=== PATIENT | male | born 1980 | race Two or more races ===

== ENCOUNTER 2024-05-21 13:26 | Emergency (ER) | payer SELFPAY ==
[~2024-05-21] VITALS: Ht 188 cm; Wt 82.5 kg
--- NOTE | 2024-05-21 14:29 | DVH ---
EXAM: CT HEAD WITHOUT CONTRAST HISTORY: INJURY COMPARISON: None TECHNIQUE: Axial images of the head were obtained and reformatted in coronal and sagittal planes. All CT scans at this medical facility are performed using dose modulation techniques as appropriate t o a performed exam including the following: Automated exposure control was utilized; adjustment of th e MA and/or KV according to patient size; and use of iterative reconstruction technique. CT Dose: CTDI volume is 57.18 mGy. Dose-length product is 1012.13 mGy*cm FINDINGS: There is no evidence of acute intracranial hemorrhage, mass, mass effect midline shift. There is no h ydrocephalus or extra-axial fluid collection. Onofre-white matter differentiation is maintained. The calvarium is intact. There are postsurgical changes along the left orbital floor. There is comple te opacification of the left frontal and left ethmoid sinuses. There is moderate mucosal thickening in the left sphenoid sinus. The mastoid air cells are clear. IMPRESSION: 1. No acute intracranial process. 2. Postsurgical changes along the left orbital floor. HS:Y
--- NOTE | 2024-05-21 14:45 | ED.PDOC ---
HPI (NEURO) HPI Comments 44y M who presents to the ED for chief complaint of head injury. Pt states he had mechanical fall over his dog 3 days prior. Pt states he did have loss of consciousness and since been having posterior headache with associated pain over his L eye. Pt states he also had vomiting episode. pt in the ED describes his headache as constant, throbbing and pressure like in nature with no associated exacerbating or relieving factors. p Pt is alert and oriented x 4 and able to answer all questions at this time. t otherwise denies any other symptoms at this time. Chief Complaint: Head Injury Time Seen by MD: 14:40 Primary Care Provider: HEADACHE Reviewed Notes: Nurses Notes, Medications Information Source: Patient Mode of Arrival: Ambulatory Brought in by: self Constitutional: denies: chills, diaphoresis, fatigue, fever, malaise, sweats, weakness, others EENTM: denies: blurred vision, double vision, ear bleeding, ear discharge, ear drainage, ear pain, ear ringing, eye pain, eye redness, hearing loss, mouth pain, mouth swelling, nasal discharge, nose bleeding, nose congestion, nose pain, photophobia, tearing, throat pain, throat swelling, voice changes, others Respiratory: denies: cough, hemoptysis, orthopnea, SOB at rest, shortness of breath, SOB with excertion, stridor, wheezing, others Cardiovascular: denies: chest pain, dizzy spells, diaphoresis, Dyspnea on exertion, edema, irregular heart beat, left arm pain, lightheadedness, palpitations, PND, syncope, others Gastrointestinal: reports: nausea, vomiting; denies: abdomen distended, abdo duane pain, blood streaked bowels, constipated, diarrhea, dysphagia, difficulty swallowing, hematemesis, melena, poor appetite, poor fluid intake, rectal bleeding, rectal pain, others Genitourinary: denies: burning, dysuria, flank pain, frequency, hematuria, incontinence, penile discharge, penile sore, pain, testicle pain, testicle swelling, urgency, others Neurological: reports: headache; denies: dizziness, fainting, left sided numbness, left sided weakness, numbness, paresthesia, pre-existing deficit, right sided numbness, right sided weakness, seizure, speech problems, tingling, tremors, weakness, others Musculoskeletal: denies: back pain, gout, joint pain, joint swelling, muscle pain, muscle stiffness, neck pain, others Integumetry: denies: bruises, change in color, change in hair/nails, dryness, laceration, lesions, lumps, rash, wounds, others Allergic/Immunocompromised: denies: Difficulty Healing, Frequent Infections, Hives, Itching, others Hematologic/Lymphatic: denies: anemia, blood clots, easy bleeding, easy bruising, swollen glands, others Endocrine: denies: excessive hunger, excessive sweating, excessive thirst, excessive urination, flushing, intolerance to cold, intolerance to heat, unexplained weight gain, unexplained weight loss, others Psychiatric: denies: anxiety, bipolar disorder, depression, hopeless, panic disorder, schizophrenia, sleepless, suicidal, others All Other Systems: Reviewed and Negative Physical Exam General Appearance: No Apparent Distress, Normal HEENT: Normal ENT Inspection, Pharynx Normal, TMs Normal Neck: Full Range of Motion, Non-Tender, Normal, Normal Inspection Respiratory: Chest Non-Tender, Lungs Clear, No Accessory Muscle Use, No Respiratory Distress, Normal Breath Sounds Cardiovascular: No Edema, No JVD, No Murmur, No Gallop, Normal Peripheral Pulses, Regular Rate/Rhythm Breast Exam: Deferred Gastrointestinal: No Organomegaly, Non Tender, No Pulsatile Mass, Normal Bowel Sounds, Soft Genitalia: Deferred Pelvic: Deferred Rectal: Deferred Extremities: No calf tenderness, Normal capillary refill, Normal inspection, Normal range of motion, Non-tender, No pedal edema Musculoskeletal : Apperance: Normal Neurologic: Alert, Other (normal cephalic changes, L orbital pain ) Cerebellar Function: Normal Reflexes: Normal Skin: Dry, Normal Color, Warm Lymphatic: No Adenopathy Was a procedure done? Was a procedure done?: No Differential Diagnosis (SZ) General Weakness: Anemia, Dehydration, Dysrhythmia, Electrolyte imbalance, Hypotension, Vertigo: central, Vertigo: peripheral, Vestibular neuronitis Headache: Migraine, Closed Head Injury, Epidural Hemorrhage, Intracerebral Hemorrhage, Subarachnoid Hemorrhage, Subdural Hemorrhage, Post-Traumatic, Sinusitis, Trigeminal Neuralgia, Other (skull fracture, intracranial bleed, contusion) X-Ray, Labs, Meds, VS Vital Signs Date Time Temp Pulse Resp B/P (MAP) Pulse Ox O2 Delivery O2 Flow Rate FiO2 05/21/24 13:35 98.2 69 18 147/100 (531) 98 [facility] [id number] [facility] [address] Ph: [phone] DIAGNOSTIC IMAGING Diagnostic Imaging Report : [id number] Signed PATIENT: CHALO ROBLERO ACCT: [id number] UNIT: [id number] : 1980 LOC: ER ROOM / BED: / AGE / SEX: 44 / M ADM STATUS: REG ER SERVICE 1343 ORDERING PHYSICIAN: LILLIAN CHAUDHARI MD PROCEDURE(s): HWOCT - HEAD WITHOUT CONTRAST REASON: INJURY ORDER NUMBER(s): [id number], ACCESSION NUMBER(s): [id number] EXAM: CT HEAD WITHOUT CONTRAST HISTORY: INJURY COMPARISON: None TECHNIQUE: Axial images of the head were obtained and reformatted in coronal and sagittal planes. All CT scans at this medical facility are performed using dose modulation techniques as appropriate to a performed exam including the following: Automated exposure control was utilized; adjustment of the MA and/or KV according to patient size; and use of iterative reconstruction technique. CT Dose: CTDI volume is 57.18 mGy. Dose-length product is 1012.13 mGy*cm FINDINGS: There is no evidence of acute intracranial hemorrhage, mass, mass effect midline shift. There is no hydrocephalus or extra-axial fluid collection. Onofre-white matter differentiation is maintained. The calvarium is intact. There are postsurgical changes along the left orbital floor. There is complete opacification of the left frontal and left ethmoid sinuses. There is moderate mucosal thickening in the left sphenoid sinus. The mastoid air cells are clear. IMPRESSION: 1. No acute intracranial process. 2. Postsurgical changes along the left orbital floor. HS:Y ATED BY: CARRILLO TRAVIS MD DICTATED DATE/TIME: 05/21/241426 SIGNED BY: CARRILLO TRAVIS MD SIGNED DATE/TIME: 05/21/241426 CC: Time of 1ST Reevaluation: 15:10 Reevaluation 1ST: Unchanged Time of 2ND Reevaluation: 15:15 Reevaluation 2ND: Improved Patient Education/Counseling: Diagnosis, Treatment, Prognosis, Need For Follow Up Family Education/Counseling: No Family Present Additional Information - I reviewed the following notes from patient's past medical encounters: - The following tests were ordered, and results were reviewed by me: (Labs, X- Ray, EKG): CT head without contrast - Additional information was gathered from interviewing the following independent Historian: (Family, Other Providers, EMT): none - I reviewed and agreed with the following test results read by other provider: (X-ray, CT, US): radiologist - I discussed treatments and results with medical personnel and: (consultants, family): none pt does not have any ct findings of an acute injury. he is stable for discharge Departure 1 Departure Time of Disposition: 15:16 Impression: Primary Impression: Post-concussion headache Disposition: HOME / SELF CARE / HOMELESS Condition: Good e-Prescriptions Ibuprofen Micronized (MOTRIN TABLET) 600 Mg Tb 600 MG PO TID PRN, #40 TAB *Black box warning-NSAIDS can increase risk of ME & hypertension, GI irritation, ulceration, bleed, perferation. Do not use post cardiac surgery. Use short duration/lowest effective dose. Prov: LILLIAN CHAUDHARI MD 05/21/24 Discharged With: Self Critical Care Note Critical Care Time?: Yes (45 min-critical care time only) Critical care comment: due to concerns for patient's condition deterioration, the care required my hig hest attention and readiness to intervene. i spoke to the family, patient, reviewed any records, ordered the appropriate tests and treatments, reviewed the results, response and communicated with medical personnel, formulated a plan of care. critical care time does not include any procedures Stability Stability form required: No Heart Score Heart Score: Heart Score Response (Comments) Value History N/A 0 EKG N/A 0 Age N/A 0 Risk Factors N/A 0 Troponin N/A 0 Total 0 I personally scribed for LILLIAN CHAUDHARI MD ([email or web address]) on 05/21/24 at 14:45. Electronically submitted by Laura PURCELL). LILLIAN CHAUDHARI MD May 21, 2024 14:45
[2024-05-21] MEDS ORDERED: IBU600T PO (15:17)
[2024-05-21 15:58] VITALS: BP 148/99; PULSE 85; RESP 17; TEMP 98.4; O2SAT 100
== END 2024-05-21 16:02 | disposition home or self-care (01) ==
LOC: ER 13:26
DX: G44.309 Post-traumatic headache, unspecified, not intractable (principal)
CPT/HCPCS: 70450

== ENCOUNTER 2024-08-09 08:50 | Emergency (ER) | payer SELFPAY ==
[~2024-08-09] VITALS: Ht 182.9 cm; Wt 100.0 kg
[2024-08-09 08:50] VITALS: BP 0/0; PULSE 0; RESP 0; TEMP 95.5; O2SAT 0
[~2024-08-09 08:50] MED LIST: IBU600T PO
--- NOTE | 2024-08-09 09:30 | RESUS ---
CODE BLUE ASSESSSMENT History of Events History of Events: PT ARRIVES TO ER WITH CPR IN PROGRESS VIA AUTOPULSE. PER EMS, UNKNOWN DOWNTIME PRIOR TO THEIR ARRIVAL. PT IS A ADEEL TREJO AT THE TIME OF ARRIVAL. UNKNOWN PMH. EMS GAVE A TOTAL OF 8 EPINEPHRINE, 5 SHOCKS, AND 4 MG OF NARCAN. Initial Information Date: Aug 09, 2024 Time: 08:49 Location of Arrest: ER Arrest Witnessed: No CPR started by whom: EMS Pre-Hospital Care: ACLS Type of arrest: Adult, Unwitnessed Spontaneous Respirations: No Pulse Present: No Monitoring: ECG, Pulse Oximetry, Telemetry Crash Cart Opened and Supplies: Yes Airway Ventilation Breathing at Onset: Assisted O2 Sat by Pulse Oximetry: 0 Oxygen Delivery Method: Ambu-Bag Artificial Ventilation: Bag/Endo tube Intubation Time: 08:54 Intubation Size: 7.0 cuffed Intubated by: LIZANDRO LANGE Intubation Attempts: 1 Intubated orally: Yes Tube secured at: 22 Circulation Circulation #1: Time: 08:50 Pulse Rate (adult): 0 Blood Pressure Systolic: 0 Blood Pressure Diastolic: 0 Circulation Comment: PT IN [place]YSTOLE Circulation #2: Time: 08:52 Pulse Rate (adult): 0 Blood Pressure Systolic: 0 Blood Pressure Diastolic: 0 Circulation Comment: PT IN [place] Circulation #3: Time: 08:54 Pulse Rate (adult): 0 Blood Pressure Systolic: 0 Blood Pressure Diastolic: 0 Temperature (Fahrenheit): 95.5 Circulation Comment: PT IN PEA Circulation #4: Time: 08:56 Pulse Rate (adult): 0 Blood Pressure Systolic: 0 Blood Pressure Diastolic: 0 Circulation Comment: PT IN [place] Procedure - Intraosseous Site of Intraosseous: Tibia eulogio-medial Intraosseous inserted by: EMS Medications & Response Medications and Responses #1: Medication Time: 08:50 ADULT Medications Given ADULT: Epinephrine 1 mg Route of Administration: IO Heart Rate: 0 EKG Rhythm: Asystole Blood Pressure Systolic: 0 Blood Pressure Diastolic: 0 Respiratory Rate: 0 O2 Sat by Pulse Oximetry: 0 EKG Rhythm: Asystole Medications and Responses #2: Medication Time: 08:51 ADULT Medications Given ADULT: Sodium Bacarbinate 50 meq Route of Administration: IO Heart Rate: 0 EKG Rhythm: Asystole Blood Pressure Systolic: 0 Blood Pressure Diastolic: 0 Respiratory Rate: 0 O2 Sat by Pulse Oximetry: 0 EKG Rhythm: Asystole Medications and Responses #3: Medication Time: 08:51 ADULT Medications Given ADULT: Narcan 1 mg Route of Administration: IO EKG Rhythm: Asystole Blood Pressure Systolic: 0 Blood Pressure Diastolic: 0 Respiratory Rate: 0 O2 Sat by Pulse Oximetry: 0 EKG Rhythm: Asystole Medications and Responses #4: Medication Time: 08:51 ADULT Medications Given ADULT: Narcan 1 mg Route of Administration: IO EKG Rhythm: Asystole Blood Pressure Systolic: 0 Blood Pressure Diastolic: 0 Respiratory Rate: 0 O2 Sat by Pulse Oximetry: 0 EKG Rhythm: Asystole Medications and Responses #5: Medication Time: 08:51 ADULT Medications Given ADULT: Narcan 1 mg Route of Administration: IO EKG Rhythm: Asystole Blood Pressure Systolic: 0 Blood Pressure Diastolic: 0 Respiratory Rate: 0 O2 Sat by Pulse Oximetry: 0 EKG Rhythm: Asystole Medications and Responses #6: Medication Time: 08:54 ADULT Medications Given ADULT: Epinephrine 1 mg Route of Administration: IO EKG Rhythm: PEA Blood Pressure Systolic: 0 Blood Pressure Diastolic: 0 Respiratory Rate: 0 O2 Sat by Pulse Oximetry: 0 EKG Rhythm: Asystole Medications and Responses #7: Medication Time: 08:54 ADULT Medications Given ADULT: Amiodarone 300 mg Route of Administration: IO EKG Rhythm: PEA EKG Rhythm: Asystole Nurses Notes Buzz Coma Scale Eye Opening: None (1) [place] Coma Scale Verbal: None (1) [place] Coma Scale Motor: None (1) Glascow Total: 3 Pupil Reaction: Non Reactive Bedside Blood Glucose: 178 Time Code Ended Time Code Ended: 08:56 Post Arrest Status: Outcome of code: Unsuccessful Patient pronounced by: DR ARMSTRONG Time patient pronounced: 08:56 Code Team Present: DR NATHANIEL BONE RT JULIA LEE Aug 09, 2024 09:30
--- NOTE | 2024-08-09 09:32 | ED.PDOC ---
CPR-HPI HPI Comments 40M is BIBA for the c/c of CPR x0759, today. Per EMS, pt is reported to be down 15 min prior to call time. EMS state on receiving the call [phone] michael arriving at x0757. On scene pt was V-Fib and was given 4mg of Narcan. En rout to the ER, the pt was Asystole and EMS gave the epinephrine x8, shocked x5 and I/O to the Left Tibial. Arrival to ED x0849 and CPR started at x0849 and stopped due from being x0856. Unable to get a PMHx, SHx of pt due from CPR as well as EMS stating the the pt is a "Gigi Rivera". Chief Complaint: CPR Time Seen by MD: 08:49 Primary Care Provider: IVAN Reviewed Notes: Interactive Multimedia Designer Notes Allergies: Coded Allergies: Erythromycin (Verified Allergy, Unknown, 05/21/24) UNOBTAINABLE (Unverified , 08/09/24) Home Meds Active Scripts Ibuprofen Micronized (MOTRIN TABLET) 600 Mg Tb, 600 MG PO TID PRN, #40 TAB *Black box warning-NSAIDS can increase risk of [place] & hypertension, GI irritation, ulceration, bleed, perferation. Do not use post cardiac surgery. Use short duration/lowest effective dose. Prov:LILLIAN CHAUDHARI MD 05/21/24 Information Source: Emergency Med Personnel Mode of Arrival: EMS Timing: Minutes Duration: Down time prior EMS: (25 minutes), Total time prior hopital: (77 Minutes) Onset: Unknown Available Hx: Unknown Inital rhythm: V-fib, Asystole Treatment: CPR Response: No response Associated signs and symptoms: Unknown Past Medical History PAST MEDICAL HISTORY: Unobtainable Surgical History: Unobtainable Family History Family History: Unobtainable Social History Smoker: Unobtainable Alcohol: Unobtainable Drugs: Unobtainable Lives In: Unobtainable Unable to Obtain due to: Medical Urgency Physical Exam General Appearance: Severe Distress HEENT: Other (Pupils fixed dilated) Neck: NOT DONE Respiratory: Respiratory Distress, Other (Intubated) Cardiovascular: Other (No pulse) Breast Exam: Deferred Gastrointestinal: Soft Genitalia: Deferred Pelvic: Deferred Rectal: Deferred Extremities: No pedal edema Neurologic: Other (Unconscious) Cerebellar Function: NOT DONE Reflexes: NOT DONE Skin: Other (Mottled) Peripheral Pulses: 0 Radial (R), 0 Radial (L) Lymphatic: NOT DONE Was a procedure done? Was a procedure done?: No Differential Dx CPR Differential Diagnosis: Cardiopulmonary arrest, Electrolyte disorder X-Ray, Labs, Meds, VS Vital Signs Date Time Temp Pulse Resp B/P (MAP) Pulse Ox O2 Delivery O2 Flow Rate FiO2 08/09/24 09:30 Ambu-Bag 0 0 08/09/24 08:50 0 0 0 Room Air* 0 21 08/09/24 08:50 95.5 0 0 0/0 (0) 0 95.5 Patient unconscious Mottled ACLS drugs use prior to coming to the ER. Continuous CPR. Continued epinephrine bicarbonate Narcan amiodarone. Downtime is more than an hour. Spoke with the team. Only family member is outside the state. Unable to revive the patient. Pronounce. Family informed. Time of 1ST Reevaluation: 09:19 Reevaluation 1ST: Unchanged Patient Education/Counseling: Pt Unresponsive Family Education/Counseling: No Family Present Departure 1 Departure Time of Disposition: 12:17 Impression: Primary Impression: Respiratory failure Qualified Codes: J96.01 - Acute respiratory failure with hypoxia Disposition: 20 Admit to: Condition: Guarded Critical Care Note Critical Care Time?: Yes (45 min-critical care time only) Critical care comment: Unable to revive informed family Heart Score Heart Score: Heart Score Response (Comments) Value History N/A 0 EKG N/A 0 Age N/A 0 Risk Factors N/A 0 Troponin N/A 0 Total 0 Stability Stability form required: No I personally scribed for ABDIEL ARMSTRONG MD ([email or web address]) on 08/09/24 at 09:32. Electronically submitted by Gigi Porter ([email or web address]). ABDIEL ARMSTRONG MD Aug 09, 2024 09:32
== END 2024-08-09 08:56 ==
LOC: EDUNIT# 08:50 → ER 08:50 → EDBD 08:50 → ER 08:56
DX: J96.90 Respiratory failure, unspecified, unspecified whether with hypoxia or hypercapnia (principal); Z88.1 Allergy status to other antibiotic agents
CPT/HCPCS: 92950